=== PATIENT | female | born 1970 | race Caucasian/White ===

== ENCOUNTER 2022-07-18 10:39 | Emergency (ER) | payer SELFPAY ==
[2022-07-18] MEDS ORDERED: Acetaminophen 500 MG TAB ONE (11:39)
== END 2022-07-18 12:01 | disposition home or self-care (01) ==
LOC: ERS 10:39
DX: I10 Essential (primary) hypertension (principal); Z76.0 Encounter for issue of repeat prescription; F17.210 Nicotine dependence, cigarettes, uncomplicated
CPT/HCPCS: 93005

== ENCOUNTER 2022-11-20 14:08 | Emergency (ER) | payer SELFPAY | END 2022-11-20 15:16 | disposition home or self-care (01) | LOC: ERS 14:08 | DX: M25.572 Pain in left ankle and joints of left foot (principal); I10 Essential (primary) hypertension; F17.210 Nicotine dependence, cigarettes, uncomplicated ==

== ENCOUNTER 2024-05-05 14:25 | Inpatient (IN) | payer BC, OTHER ==
[~2024-05-05 14:25] MED LIST: Iopamidol-370 76% 500 ML MDV (1 ML CHARGE) ONE
[2024-05-05 15:37] LABS: #Basophils 0.04 10x3/uL (0.0-0.2); %Basophils 0.4 % (0.0-1.0); %Eosinophils 1.5 % (0.0-10.0); %Lymphocytes 28.6 % (21.0-51.0); %Monocytes 6.2 % (0.0-10.0); %Neutrophils 63.1 % (42.0-75.0); Hematocrit 46.9 % (36.0-47.0); Hemoglobin 15.6 g/dL (12.0-16.0); Mean Corpuscular HGB CONC 33.3 g/dL (32.0-36.0); Mean Corpuscular Hemoglobin 29.4 pg (27.0-31.0); Mean Corpuscular Volume 88.5 fL (78.0-98.0); Mean Platelet Volume 9.8 fL (7.4-10.4); Platelet Count 336 10x3/uL (130-400); RBC Distribution Width 13.2 % (11.5-14.5)
[2024-05-05 16:01] LABS: ALT (SGPT) 18 U/L (8-55); AST (SGOT) 16 U/L (5-34); Albumin 3.4 g/dL (3.5-5.0); Alkaline Phosphatase 129 U/L (40-110); Anion Gap 11 mmol/L (10-20); BUN (Urea Nitrogen) 11 mg/dL (9.8-20.1); Bilirubin, Total 0.3 mg/dL (0.2-1.2); Calc. Creatinine Clearance 0 mL/min (70-130); Calcium 9.6 mg/dL (7.8-10.44); Carbon Dioxide 23 mmol/L (22-29); Chloride 107 mmol/L (98-107); Estimated GFR 93; Globulin 3.7 g/dL (2.4-3.5); Glucose 134 mg/dL (70-105); Potassium 4.3 mmol/L (3.5-5.1); Protein, Total 7.1 g/dL (6.0-8.3); Sodium 137 mmol/L (136-145); Troponin I Less than 0.010 ng/mL (< 0.028)
[2024-05-05] MEDS ORDERED: Aspirin Chewable 81 MG TAB ONE ×2 (17:06→17:07)
[2024-05-05] MEDS ORDERED: Nitroglycerin 2% Ointment 1 INCH/1 GM Packet ONE (17:43)
[2024-05-05 23:50] LABS: Troponin I Less than 0.010 ng/mL (< 0.028)
[2024-05-06] MEDS ORDERED: Nitroglycerin 0.4 MG TAB (25 Tab Bottle) SL PRN (01:28)
[2024-05-06] MEDS ORDERED: Acetaminophen 650 MG Suppository PR PRN (01:28)
[2024-05-06] MEDS ORDERED: Ondansetron ODT 4 MG TAB PO PRN (01:28)
[2024-05-06] MEDS ORDERED: Ondansetron PF 4 MG/2 ML Vial IVP PRN (01:28)
[2024-05-06] MEDS ORDERED: hydrALAZINE 20 MG/ML VIAL SLOW IVP PRN (02:53)
[2024-05-06] MEDS: Pantoprazole 40 MG VIAL IVP SCH (04:10)
[2024-05-06] MEDS ORDERED: Acetaminophen 325 MG TAB ONE (04:13)
[2024-05-06] MEDS ORDERED: Pantoprazole 40 MG VIAL ONE (04:16)
[2024-05-06] MEDS: Acetaminophen 325 MG TAB PO PRN (04:28)
[2024-05-06 04:29] LABS: #Basophils 0.03 10x3/uL (0.0-0.2); %Basophils 0.3 % (0.0-1.0); %Eosinophils 2.9 % (0.0-10.0); %Lymphocytes 42.2 % (21.0-51.0); %Monocytes 8.6 % (0.0-10.0); %Neutrophils 45.8 % (42.0-75.0); Hematocrit 43.3 % (36.0-47.0); Hemoglobin 14.2 g/dL (12.0-16.0); Mean Corpuscular HGB CONC 32.8 g/dL (32.0-36.0); Mean Corpuscular Hemoglobin 29.3 pg (27.0-31.0); Mean Corpuscular Volume 89.5 fL (78.0-98.0); Mean Platelet Volume 10.2 fL (7.4-10.4); Platelet Count 300 10x3/uL (130-400); RBC Distribution Width 13.5 % (11.5-14.5); Red Blood Cell (RBC) Count 4.84 mill/uL (4.20-5.40)
[2024-05-06 04:52] LABS: Anion Gap 14 mmol/L (10-20); BUN (Urea Nitrogen) 12 mg/dL (9.8-20.1); Calc. Creatinine Clearance 146 mL/min (70-130); Carbon Dioxide 21 mmol/L (22-29); Cardiac Risk 3.9 (Less than 4.5); Chloride 106 mmol/L (98-107); Cholesterol 201 mg/dl (< 200 Desired); Estimated GFR 93; Glucose 155 mg/dL (70-105); HDL Cholesterol 52 mg/dL (>60 Neg Risk); LDL Cholesterol, Calculated 117 mg/dL; Potassium 4.1 mmol/L (3.5-5.1); Sodium 137 mmol/L (136-145); Triglycerides 161 mg/dL (Less than 150)
[2024-05-06 04:54] LABS: Troponin I Less than 0.010 ng/mL (< 0.028)
[2024-05-06 04:58] LABS: Hemoglobin A1c 5.8 % (4.0-6.0)
[2024-05-06] MEDS ORDERED: Pantoprazole 40 MG VIAL IVP SCH (09:00)
[2024-05-06 09:36] VITALS: BMI 49.0
[2024-05-06] MEDS ORDERED: Regadenoson 0.4 MG/5 ML SYRINGE ONE (11:00)
[2024-05-06] MEDS: Aspirin Chewable 81 MG TAB PO SCH (11:26)
[2024-05-06] MEDS: Lisinopril 10 MG TAB PO SCH (11:26)
[2024-05-06 18:47] LABS: Amphetamine Not Detected (NotDetected); Barbiturates Screen Not Detected (NotDetected); Benzodiazepine Screen Not Detected (NotDetected); Cocaine Metabolite Screen Not Detected (NotDetected); Methadone Not Detected (NotDetected); Methamphetamine Not Detected (NotDetected); Opiate Screen Not Detected (NotDetected); Oxycodone Screen Not Detected (NotDetected); Phencyclidine (PCP) Not Detected (NotDetected); THC/Cannabinoid Screen Not Detected (NotDetected); Tricyclic Screen Not Detected (NotDetected)
[2024-05-07] MEDS: Pantoprazole 40 MG VIAL IVP SCH (08:17)
[2024-05-07] MEDS: hydrALAZINE 20 MG/ML VIAL SLOW IVP PRN (10:07)
[2024-05-07] MEDS ORDERED: Regadenoson 0.4 MG/5 ML SYRINGE ONE (10:27)
[2024-05-07 16:22] VITALS: BP 127/58; TEMP 97.8
[2024-05-08] MEDS ORDERED: Lisinopril 20 MG TAB PO SCH (21:00)
== END 2024-05-07 18:00 | disposition home or self-care (01) | DRG 313 ==
LOC: ERS 14:25 → 2SW 20:50 → ERHOLD 21:16 → 2SW 05-06 09:32 → OBSVTOIN 05-07 12:08
PROVIDERS: ADMIT Student in an Organized Health Care Education/Training Program; ATTEND Internal Medicine
DX: R07.89 Other chest pain (principal); Z68.41 Body mass index [BMI] 40.0-44.9, adult; I16.0 Hypertensive urgency; R10.11 Right upper quadrant pain; K21.9 Gastro-esophageal reflux disease without esophagitis; F19.10 Other psychoactive substance abuse, uncomplicated; E66.01 Morbid (severe) obesity due to excess calories; K76.0 Fatty (change of) liver, not elsewhere classified; M41.9 Scoliosis, unspecified; F17.210 Nicotine dependence, cigarettes, uncomplicated; Z88.1 Allergy status to other antibiotic agents; Z88.5 Allergy status to narcotic agent; Z79.82 Long term (current) use of aspirin; Z79.899 Other long term (current) drug therapy; Z98.890 Other specified postprocedural states
CPT/HCPCS: 36415; 36416; 71046; 71275; 76705; 78452; 80048; 80053; 80061; 80306; 83036; 83690; 83880; 84484; 85025; 85379; 93005; 93017; 93306; 96374; 96375; 96376; A9502; C9113; G0378; J0360; J2785; Q9967

== ENCOUNTER 2025-08-14 00:08 | Inpatient (IN) | payer OTHER ==
[2025-08-14] MEDS ORDERED: diphenhydrAMINE 50 MG/ML VIAL ONE (00:35)
[2025-08-14] MEDS ORDERED: Ondansetron PF 4 MG/2 ML Vial ONE ×2 (00:35→13:38)
[2025-08-14] MEDS ORDERED: Pantoprazole 40 MG VIAL ONE (00:39)
[2025-08-14 00:52] LABS: #Basophils Less than 0.03 10x3/uL (0.0-0.2); #Eosinophils Less than 0.03 10x3/uL (0.0-0.7); #Monocytes 0.44 10x3/uL (0.11-0.59); #Neutrophils 12.17 10x3/uL (1.40-6.50); %Basophils 0.1 % (0.0-1.0); %Eosinophils 0.0 % (0.0-10.0); %Lymphocytes 16.3 % (21.0-51.0); %Monocytes 2.9 % (0.0-10.0); %Neutrophils 80.4 % (42.0-75.0); Hematocrit 46.8 % (36.0-47.0); Hemoglobin 15.7 g/dL (12.0-16.0); Mean Corpuscular Hemoglobin 29.1 pg (27.0-31.0); Mean Corpuscular Volume 86.8 fL (78.0-98.0); Platelet Count 341 10x3/uL (130-400); Red Blood Cell (RBC) Count 5.39 mill/uL (4.20-5.40); White Blood Cell (WBC) Count 15.15 10x3/uL (4.8-10.8)
[2025-08-14] MEDS ORDERED: PROPOFOL 20 ML ONE ×2 (01:24→13:38)
[2025-08-14 01:56] LABS: ALT (SGPT) 20 U/L (Less than 34); AST (SGOT) 32 U/L (11-34); Albumin 3.9 g/dL (3.1-4.5); Alkaline Phosphatase 130 U/L (40-110); Anion Gap 25 mmol/L (10-20); BUN (Urea Nitrogen) 15 mg/dL (9.8-20.1); Bilirubin, Total 0.4 mg/dL (0.3-1.2); Calc. Creatinine Clearance 0 mL/min (70-130); Calcium 10.0 mg/dL (7.8-10.44); Carbon Dioxide 16 mmol/L (22-29); Chloride 105 mmol/L (98-107); Globulin 3.9 g/dL (2.4-3.5); Glucose 222 mg/dL (70-105); Lipase 20 U/L (8-78); Potassium 4.2 mmol/L (3.5-5.1); Sodium 142 mmol/L (136-145)
[2025-08-14 03:53] LABS: #Basophils Less than 0.03 10x3/uL (0.0-0.2); #Eosinophils Less than 0.03 10x3/uL (0.0-0.7); #Monocytes 0.85 10x3/uL (0.11-0.59); #Neutrophils 19.16 10x3/uL (1.40-6.50); %Basophils 0.1 % (0.0-1.0); %Eosinophils 0.0 % (0.0-10.0); %Lymphocytes 2.7 % (21.0-51.0); %Monocytes 4.1 % (0.0-10.0); %Neutrophils 92.6 % (42.0-75.0); Hematocrit 44.3 % (36.0-47.0); Hemoglobin 14.3 g/dL (12.0-16.0); Mean Corpuscular Hemoglobin 29.2 pg (27.0-31.0); Mean Corpuscular Volume 90.6 fL (78.0-98.0); Platelet Count 275 10x3/uL (130-400); Red Blood Cell (RBC) Count 4.89 mill/uL (4.20-5.40); White Blood Cell (WBC) Count 20.70 10x3/uL (4.8-10.8)
[2025-08-14 04:17] LABS: Bacteria/HPF None Seen HPF (None Seen); CAUTI Indications for Culture Alt mental st,lethar; Glucose, Urine (Dipstick) Normal (Negative); Leukocyte Negative Leu/uL (Negative); Protein, Urine (Dipstick) Negative (Neg-Trace); RBC/HPF 0-3 HPF (0-3); WBC/HPF 0-3 HPF (0-3)
[2025-08-14 04:19] LABS: Specific Gravity, Urine 1.010 (1.002-1.036)
[2025-08-14 04:20] LABS: Urine Culture Reflex No No
[2025-08-14] MEDS ORDERED: Ondansetron PF 4 MG/2 ML Vial IVP PRN (05:00)
[2025-08-14] MEDS ORDERED: hydrALAZINE 20 MG/ML VIAL SLOW IVP PRN (05:00)
[2025-08-14] MEDS ORDERED: Glucagon 1 MG/ML KIT IM PRN (05:00)
[2025-08-14] MEDS ORDERED: Dextrose 50% Abboject 50 ML SYRINGE SLOW IVP PRN (05:00)
[2025-08-14 08:42] VITALS: BMI 47.8
[2025-08-14] MEDS ORDERED: Iopamidol 370 76% 100 ML VIAL ONE (09:11)
[2025-08-14] MEDS ORDERED: fentaNYL PF 100 MCG/2 ML SYRINGE ONE (13:38)
[2025-08-14] MEDS ORDERED: Lidocaine 2% PF 100 mg/5 ml Syringe ONE (13:38)
[2025-08-14] MEDS ORDERED: Rocuronium Bromide 10 MG/ML (10ML VIAL) ONE (13:38)
[2025-08-14] MEDS ORDERED: SUCCINYLCHOLINE/SOD CL,ISO/PF 200 MG/10 ML SYRINGE FS ONE (13:38)
[2025-08-14] MEDS ORDERED: CEFAZOLIN 1 GM VIAL ONE ×2 (13:38→14:30)
[2025-08-14] MEDS ORDERED: PHENYLEPHRINE-NS 100 MCG/ML 10 ML SYRINGE ONE (13:38)
[2025-08-14] MEDS ORDERED: SUGAMMADEX SODIUM 200 MG/2 ML VIAL ONE (13:38)
[2025-08-14] MEDS ORDERED: Famotidine/PF 20 mg/2ml Vial ONE (14:12)
[2025-08-14] MEDS ORDERED: Albuterol HFA (OR) 200 PUFF INH ONE (14:40)
[2025-08-14] MEDS ORDERED: PACU-Morphine 4MG/ML VIAL SLOW IVP PRN (15:11)
[2025-08-14] MEDS ORDERED: Ketorolac Tromethamine 30 MG (1 mL) VIAL ONE (15:12)
[2025-08-14] MEDS: Pantoprazole 40 MG VIAL IVP SCH (17:59)
[2025-08-14 18:40] LABS: Anion Gap 14 mmol/L (10-20); BUN (Urea Nitrogen) 13 mg/dL (9.8-20.1); Calc. Creatinine Clearance 143 mL/min (70-130); Calcium 8.3 mg/dL (7.8-10.44); Carbon Dioxide 22 mmol/L (22-29); Chloride 110 mmol/L (98-107); Glucose 146 mg/dL (70-105); Potassium 4.0 mmol/L (3.5-5.1); Sodium 142 mmol/L (136-145)
[2025-08-14] MEDS: Gabapentin 100 MG CAP PO SCH (21:16)
[2025-08-15 07:51] LABS: #Basophils Less than 0.03 10x3/uL (0.0-0.2); #Eosinophils Less than 0.03 10x3/uL (0.0-0.7); #Monocytes 1.14 10x3/uL (0.11-0.59); #Neutrophils 11.27 10x3/uL (1.40-6.50); %Basophils 0.1 % (0.0-1.0); %Eosinophils 0.0 % (0.0-10.0); %Lymphocytes 11.5 % (21.0-51.0); %Monocytes 8.1 % (0.0-10.0); %Neutrophils 79.9 % (42.0-75.0); Hematocrit 37.3 % (36.0-47.0); Hemoglobin 11.9 g/dL (12.0-16.0); Mean Corpuscular Hemoglobin 29.2 pg (27.0-31.0); Mean Corpuscular Volume 91.4 fL (78.0-98.0); Platelet Count 226 10x3/uL (130-400); Red Blood Cell (RBC) Count 4.08 mill/uL (4.20-5.40); White Blood Cell (WBC) Count 14.10 10x3/uL (4.8-10.8)
[2025-08-15 08:12] LABS: Anion Gap 13 mmol/L (10-20); BUN (Urea Nitrogen) 12 mg/dL (9.8-20.1); Calc. Creatinine Clearance 159 mL/min (70-130); Calcium 8.1 mg/dL (7.8-10.44); Carbon Dioxide 24 mmol/L (22-29); Chloride 109 mmol/L (98-107); Glucose 120 mg/dL (70-105); Magnesium 1.9 mg/dL (1.6-2.6); Potassium 4.5 mmol/L (3.5-5.1); Sodium 141 mmol/L (136-145)
[2025-08-15] MEDS: Rosuvastatin 10 MG TAB PO SCH (10:41)
[2025-08-15] MEDS: Pantoprazole 40 MG VIAL IVP SCH (10:41)
[2025-08-15] MEDS: Lisinopril 20 MG TAB PO SCH (11:13)
[2025-08-15] MEDS ORDERED: diphenhydrAMINE 25 MG CAP PO PRN (17:29)
[2025-08-15] MEDS: HYDROcodone/Acetaminophen 5/325 mg Tablet PO PRN (20:13)
[2025-08-16] MEDS: Acetaminophen 325 MG TAB PO PRN (08:54)
[2025-08-16] MEDS: Lisinopril 20 MG TAB PO SCH (08:55)
[2025-08-16] MEDS: Methocarbamol 500 MG TAB PO SCH (09:24)
[2025-08-16 10:15] LABS: #Basophils 0.04 10x3/uL (0.0-0.2); #Eosinophils 0.08 10x3/uL (0.0-0.7); #Monocytes 1.03 10x3/uL (0.11-0.59); #Neutrophils 7.45 10x3/uL (1.40-6.50); %Basophils 0.4 % (0.0-1.0); %Eosinophils 0.7 % (0.0-10.0); %Lymphocytes 22.9 % (21.0-51.0); %Monocytes 9.2 % (0.0-10.0); %Neutrophils 66.4 % (42.0-75.0); Hematocrit 34.6 % (36.0-47.0); Hemoglobin 11.3 g/dL (12.0-16.0); Mean Corpuscular Hemoglobin 30.0 pg (27.0-31.0); Mean Corpuscular Volume 91.8 fL (78.0-98.0); Platelet Count 225 10x3/uL (130-400); Red Blood Cell (RBC) Count 3.77 mill/uL (4.20-5.40); White Blood Cell (WBC) Count 11.22 10x3/uL (4.8-10.8)
[2025-08-16 10:29] LABS: Anion Gap 14 mmol/L (10-20); BUN (Urea Nitrogen) 11 mg/dL (9.8-20.1); Calc. Creatinine Clearance 204 mL/min (70-130); Calcium 8.2 mg/dL (7.8-10.44); Carbon Dioxide 23 mmol/L (22-29); Chloride 105 mmol/L (98-107); Glucose 118 mg/dL (70-105); Potassium 3.8 mmol/L (3.5-5.1); Sodium 138 mmol/L (136-145)
[2025-08-16] MEDS: Enoxaparin 40 MG (0.4 mL) SYRINGE SC SCH (21:28)
[2025-08-17 04:53] LABS: #Basophils 0.03 10x3/uL (0.0-0.2); #Eosinophils 0.30 10x3/uL (0.0-0.7); #Monocytes 0.88 10x3/uL (0.11-0.59); #Neutrophils 5.23 10x3/uL (1.40-6.50); %Basophils 0.3 % (0.0-1.0); %Eosinophils 3.0 % (0.0-10.0); %Lymphocytes 35.9 % (21.0-51.0); %Monocytes 8.7 % (0.0-10.0); %Neutrophils 51.8 % (42.0-75.0); Hematocrit 35.7 % (36.0-47.0); Hemoglobin 11.8 g/dL (12.0-16.0); Mean Corpuscular Hemoglobin 30.6 pg (27.0-31.0); Mean Corpuscular Volume 92.5 fL (78.0-98.0); Platelet Count 247 10x3/uL (130-400); Red Blood Cell (RBC) Count 3.86 mill/uL (4.20-5.40); White Blood Cell (WBC) Count 10.10 10x3/uL (4.8-10.8)
[2025-08-17 05:14] LABS: Anion Gap 13 mmol/L (10-20); BUN (Urea Nitrogen) 12 mg/dL (9.8-20.1); Calc. Creatinine Clearance 207 mL/min (70-130); Calcium 8.4 mg/dL (7.8-10.44); Carbon Dioxide 26 mmol/L (22-29); Chloride 104 mmol/L (98-107); Glucose 92 mg/dL (70-105); Potassium 3.9 mmol/L (3.5-5.1); Sodium 139 mmol/L (136-145)
[2025-08-17] MEDS: Senokot S 8.6-50 MG TAB PO SCH (11:38)
[2025-08-17] MEDS: Aspirin Chewable 81 MG TAB PO SCH (20:58)
[2025-08-18 05:19] LABS: #Basophils 0.03 10x3/uL (0.0-0.2); #Eosinophils 0.40 10x3/uL (0.0-0.7); #Monocytes 0.69 10x3/uL (0.11-0.59); #Neutrophils 5.08 10x3/uL (1.40-6.50); %Basophils 0.3 % (0.0-1.0); %Eosinophils 4.5 % (0.0-10.0); %Lymphocytes 30.2 % (21.0-51.0); %Monocytes 7.7 % (0.0-10.0); %Neutrophils 57.1 % (42.0-75.0); Hematocrit 31.2 % (36.0-47.0); Hemoglobin 10.2 g/dL (12.0-16.0); Mean Corpuscular Hemoglobin 29.1 pg (27.0-31.0); Mean Corpuscular Volume 89.1 fL (78.0-98.0); Platelet Count 254 10x3/uL (130-400); Red Blood Cell (RBC) Count 3.50 mill/uL (4.20-5.40); White Blood Cell (WBC) Count 8.91 10x3/uL (4.8-10.8)
[2025-08-18 05:34] LABS: ALT (SGPT) Less than 7 U/L (Less than 34); AST (SGOT) 14 U/L (11-34); Albumin 2.4 g/dL (3.1-4.5); Alkaline Phosphatase 71 U/L (40-110); Anion Gap 12 mmol/L (10-20); BUN (Urea Nitrogen) 9 mg/dL (9.8-20.1); Bilirubin, Direct 0.1 mg/dL (0.1-0.3); Bilirubin, Total 0.3 mg/dL (0.3-1.2); Calc. Creatinine Clearance 191 mL/min (70-130); Calcium 8.2 mg/dL (7.8-10.44); Carbon Dioxide 27 mmol/L (22-29); Chloride 104 mmol/L (98-107); Glucose 114 mg/dL (70-105); Potassium 3.6 mmol/L (3.5-5.1); Sodium 139 mmol/L (136-145)
[2025-08-18] MEDS: Pantoprazole 40 MG DR.TAB PO SCH (09:48)
[2025-08-19 06:32] LABS: #Basophils 0.03 10x3/uL (0.0-0.2); #Eosinophils 0.59 10x3/uL (0.0-0.7); #Monocytes 0.65 10x3/uL (0.11-0.59); #Neutrophils 4.93 10x3/uL (1.40-6.50); %Basophils 0.3 % (0.0-1.0); %Eosinophils 6.2 % (0.0-10.0); %Lymphocytes 34.3 % (21.0-51.0); %Monocytes 6.8 % (0.0-10.0); %Neutrophils 52.0 % (42.0-75.0); Hematocrit 37.3 % (36.0-47.0); Hemoglobin 12.4 g/dL (12.0-16.0); Mean Corpuscular Hemoglobin 29.7 pg (27.0-31.0); Mean Corpuscular Volume 89.4 fL (78.0-98.0); Platelet Count 301 10x3/uL (130-400); Red Blood Cell (RBC) Count 4.17 mill/uL (4.20-5.40); White Blood Cell (WBC) Count 9.50 10x3/uL (4.8-10.8)
[2025-08-19 06:45] LABS: Anion Gap 15 mmol/L (10-20); BUN (Urea Nitrogen) 8 mg/dL (9.8-20.1); Calc. Creatinine Clearance 222 mL/min (70-130); Calcium 8.9 mg/dL (7.8-10.44); Carbon Dioxide 26 mmol/L (22-29); Chloride 106 mmol/L (98-107); Glucose 87 mg/dL (70-105); Potassium 3.8 mmol/L (3.5-5.1); Sodium 143 mmol/L (136-145)
[2025-08-19 06:48] LABS: ALT (SGPT) 7 U/L (Less than 34); AST (SGOT) 17 U/L (11-34); Albumin 2.7 g/dL (3.1-4.5); Alkaline Phosphatase 83 U/L (40-110); Bilirubin, Direct 0.2 mg/dL (0.1-0.3); Bilirubin, Total 0.4 mg/dL (0.3-1.2)
[2025-08-19 16:58] VITALS: BP 167/93; TEMP 98.1
== END 2025-08-19 17:22 | disposition home or self-care (01) | DRG 354 ==
LOC: ERS 00:08 → ERHOLD 05:00 → SURG A 17:45
PROVIDERS: ADMIT Surgery Trauma Surgery; ATTEND Surgery Trauma Surgery
PROC: 0WUF0JZ Supplement Abdominal Wall with Synthetic Substitute, Open Approach (ICD-10-PCS; principal; 2025-08-14)
PROC: 0DBU0ZZ Excision of Omentum, Open Approach (ICD-10-PCS; 2025-08-14)
DX: K43.9 Ventral hernia without obstruction or gangrene (principal); K56.609 Unspecified intestinal obstruction, unspecified as to partial versus complete obstruction; Z68.42 Body mass index [BMI] 45.0-49.9, adult; K21.9 Gastro-esophageal reflux disease without esophagitis; I10 Essential (primary) hypertension; K42.9 Umbilical hernia without obstruction or gangrene; Z96.611 Presence of right artificial shoulder joint; F32.A Depression, unspecified; E66.01 Morbid (severe) obesity due to excess calories; Z98.890 Other specified postprocedural states; Z88.1 Allergy status to other antibiotic agents; Z88.5 Allergy status to narcotic agent; Z71.3 Dietary counseling and surveillance
CPT/HCPCS: 36415; 71045; 74018; 74177; 80048; 80053; 80076; 81001; 83605; 83690; 83735; 83880; 84100; 84484; 85025; 88307; 93005; 96374; 96375; 99152; A4314; C1781; J0690; J1100; J1200; J1630; J1650; J1885; J2003; J2470; J2704; J7120; Q9967

== ENCOUNTER 2025-10-02 19:22 | Emergency (ER) | payer OTHER ==
[2025-10-02] MEDS ORDERED: Acetaminophen 500 MG TAB ONE (20:45)
== END 2025-10-03 00:13 | disposition home or self-care (01) ==
LOC: ERS 19:22
DX: S00.83XA Contusion of other part of head, initial encounter (principal); S30.11XA Contusion of abdominal wall, initial encounter; I10 Essential (primary) hypertension; F17.290 Nicotine dependence, other tobacco product, uncomplicated; V89.2XXA Person injured in unspecified motor-vehicle accident, traffic, initial encounter; Z79.899 Other long term (current) drug therapy; Z79.82 Long term (current) use of aspirin
CPT/HCPCS: 70450; 74176; Q0162